=== PATIENT | female | born 1970 | race American Indian/Alaskan Native ===

== ENCOUNTER 2017-10-18 08:44 | Emergency (ER) | payer MEDICARE ==
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
[2017-10-18 10:31] LABS: HCG Qualitative,Urine Negative (Negative)
[2017-10-18 10:35] LABS: Bilirubin,Urine NEG (Negative); Blood,Urine NEG (Negative); Color,Urine Yellow (Yellow); Mucus,Urine FEW /HPF; Protein,Urine <15 mg/dL mg/dL (Negative); Urobilinogen,Urine < 2.0 mg/dL (<2.0)
--- NOTE | 2017-10-18 12:24 | XRay Report ---
Right elbow 2 views: History: Pain and swelling. Findings: No bony or articular abnormality. No fracture or dislocation no soft tissue calcification. No joint effusion. Impression: Essentially negative right elbow
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
--- NOTE | 2017-10-18 12:27 | XRay Report ---
Lumbar spine 3 views: History: Back injury. Findings: Normal height of vertebral bodies and intervertebral disc. Normal articular surfaces. No fracture. Normal prevertebral and paravertebral soft tissue. Impression: No evidence of fracture.
--- NOTE | 2017-10-18 12:28 | XRay Report ---
Thoracic spine 3 views: History: Back injury. Findings: Normal height of vertebral bodies. Minimal decrease in height of mid thoracic intervertebral disc spaces. Sclerotic articular surfaces with peripheral osteophytes suggesting degenerative changes. No fracture. No paravertebral mass. Impression: [id number] degenerative changes mid thoracic spine.
[2017-10-18] MEDS ORDERED: TORADOL IM ONE (13:12)
[2017-10-18 13:55] VITALS: BP 118/74
== END 2017-10-18 14:35 | disposition home or self-care (01) ==
LOC: ED 08:44
DX: S40.011A Contusion of right shoulder, initial encounter (principal); S80.01XA Contusion of right knee, initial encounter; S10.93XA Contusion of unspecified part of neck, initial encounter; S30.0XXA Contusion of lower back and pelvis, initial encounter; F41.9 Anxiety disorder, unspecified; V49.49XA Driver injured in collision with other motor vehicles in traffic accident, initial encounter; Y93.89 Activity, other specified; Y92.89 Other specified places as the place of occurrence of the external cause; Y99.8 Other external cause status
CPT/HCPCS: 72040; 72070; 72100; 73070; 73562; 81001; 81025; 96372; 99284; J1885